=== PATIENT | male | born 1970 | race Caucasian/White ===

== ENCOUNTER 2019-03-08 02:07 | Emergency (ER) | payer MEDICAID ==
[~2019-03-08] VITALS: Ht 188 cm; Wt 91.0 kg
[2019-03-08] MEDS ORDERED: KETOROLAC 60MG/2ML VIAL IM ONE (06:00)
[2019-03-08 13:27] VITALS: BP 123/89
== END 2019-03-08 13:53 | disposition home or self-care (01) ==
LOC: ER 02:07
DX: M25.552 Pain in left hip (principal); V19.3XXA Pedal cyclist (driver) (passenger) injured in unspecified nontraffic accident, initial encounter; Y93.89 Activity, other specified; Y92.488 Other paved roadways as the place of occurrence of the external cause
CPT/HCPCS: 96372; 99283; J1885; Z7610